=== PATIENT | female | born 1975 | race Caucasian/White ===

== ENCOUNTER 2023-01-21 08:07 | Day surgery (SDC) | payer OTHER ==
[~2023-01-21 08:07] MED LIST: PEPCID20 MG PO
== END 2023-01-21 21:40 | disposition home or self-care (01) ==
LOC: CIR.AMB 08:07
PROVIDERS: ATTEND Colon & Rectal Surgery
DX: N81.6 Rectocele (principal); K59.02 Outlet dysfunction constipation; Z20.822 Contact with and (suspected) exposure to COVID-19